=== PATIENT | male | born 1955 | race African-American/Black ===

== ENCOUNTER 2017-05-25 11:23 | Emergency (ER) | payer OTHER ==
[2017-05-25 12:37] LABS: APPEARANCE CLEAR (CLEAR); BACTERIA FEW /hpf (NONE SEEN); BILIRUBIN NEGATIVE (NEGATIVE); COLOR YELLOW (YELLOW); EPITHELIAL CELLS OCC /hpf (0-5); GLUCOSE NEGATIVE (NEGATIVE); KETONE NEGATIVE (NEGATIVE); MUCUS <1+ /lpf (NONE SEEN); NITRITE NEGATIVE (NEGATIVE); PROTEIN NEGATIVE (NEGATIVE); RED CELLS - URINE OCC /hpf (0-5); SPECIFIC GRAVITY 1.015 (1.005-1.020); UROBILINOGEN NORMAL (NORMAL); WHITE CELLS - URINE RARE /hpf (0-5)
== END 2017-05-25 14:10 | disposition home or self-care (01) ==
LOC: D.ER 11:23
PROVIDERS: Physician Assistant
DX: N45.1 Epididymitis (principal); I10 Essential (primary) hypertension; F17.200 Nicotine dependence, unspecified, uncomplicated

== ENCOUNTER 2017-09-12 03:06 | Emergency (ER) | payer OTHER | END 2017-09-12 05:00 | disposition home or self-care (01) | LOC: D.ER 03:06 | DX: N50.811 Right testicular pain (principal); I10 Essential (primary) hypertension ==

== ENCOUNTER 2017-11-05 09:20 | Emergency (ER) | payer OTHER | END 2017-11-05 11:50 | disposition home or self-care (01) | LOC: D.ER 09:20 | DX: S22.42XA Multiple fractures of ribs, left side, initial encounter for closed fracture (principal); W13.2XXA Fall from, out of or through roof, initial encounter; Y93.89 Activity, other specified; Y92.89 Other specified places as the place of occurrence of the external cause; I10 Essential (primary) hypertension; F17.200 Nicotine dependence, unspecified, uncomplicated ==